=== PATIENT | female | born 1950 | race Caucasian/White ===

== ENCOUNTER 2018-11-30 06:55 | Inpatient (IN) | payer OTHER ==
[~2018-11-30] VITALS: Ht 162.6 cm; Wt 63.0 kg
--- NOTE | 2018-11-30 06:55 | NUR ---
PT [facility]. TAKEN TO BED 6
[2018-11-30 07:00] VITALS: BP 128/80
[2018-11-30] MEDS ORDERED: NACL 0.9% 2,000 ML IV SCH (07:09)
--- NOTE | 2018-11-30 08:00 | NUR ---
ASSUMED PATIENT CARE, NURSING ASSESSMENT COMPLETED. SEEN AND EVALUATED BY PREET ARCE COMPLETED.
[2018-11-30 08:22] LABS: BASOPHILS % (AUTO) 0.2 % (0.0-2.0); EOSINOPHILS % (AUTO) 0.1 % (0.0-4.0); HEMOGLOBIN 11.7 g/dL (12.0-16.0); LYMPHOCYTES # (AUTO) 0.1 K/uL (2.5-16.5); MONOCYTES # (AUTO) 0.3 K/uL (0.8-1.0)
[2018-11-30 08:27] LABS: HEMATOCRIT 36.3 % (36-48); LYMPHOCYTES % (AUTO) 1.7 % (20.5-51.1); MEAN CORPUSCULAR HEMOGLOBIN 27 pg (27-31); MEAN CORPUSCULAR HGB CONC 32 g/dL (33-37); MEAN CORPUSCULAR VOLUME 84.8 fL (80-94); MONOCYTES % (AUTO) 4.1 % (1.7-9.3); NEUTROPHILS # (AUTO) 6.5 K/uL (1.8-7.7); NEUTROPHILS % (AUTO) 93.9 % (42.2-75.2); PLATELET COUNT (AUTO) 127 K/uL (140-450); RED BLOOD CELL COUNT(AUTO) 4.28 MIL/uL (4.20-5.40); RED CELL DISTRIBUTION WIDTH 15.4 % (11.6-13.7)
[2018-11-30 08:39] LABS: ANION GAP 10.4 (8-16); CARBON DIOXIDE 22.7 mmol/L (21-32); CHLORIDE 107 mmol/L (98-107); CREATININE 2.1 mg/dL (0.6-1.3); GFR ARICAN-AMERICAN 30 mL/min (>90); GLUCOSE 95 mg/dL (74-106); POTASSIUM 4.1 mmol/L (3.5-5.1); SODIUM SERUM 136 mmol/L (136-145); UREA NITROGEN, BLOOD 56 mg/dL (7-18)
[2018-11-30 08:43] LABS: ACETONE, SERUM NEGATIVE (NEGATIVE)
[2018-11-30 08:44] LABS: ACETAMINOPHEN 4.1 ug/ml (10-30); ALBUMIN 2.3 g/dL (3.4-5.0); ASPARTATE AMINOTRANSFERASE 21 U/L (15-37); MAGNESIUM 2.1 mg/dL (1.8-2.4); SALICYLATE 3.1 mg/dL (2.8-20.0); TOTAL BILIRUBIN 0.2 mg/dL (0.0-1.0)
[2018-11-30] MEDS ORDERED: ALBUTEROL SULFATE/IPRATROPIU 3 ML SOL IH ONE (08:55)
[2018-11-30] MEDS ORDERED: DEXAMETHASONE 10 MG/ML VIAL IVP ONE (08:55)
[2018-11-30] MEDS ORDERED: AZTREONAM 1,000 MG in DEXTROSE 5% 50 ML IV SCH (08:55)
[2018-11-30 08:58] LABS: PROTHROMBIN TIME 9.2 secs (10.8-13.4)
[2018-11-30 09:32] LABS: APPEARANCE,URINE CLOUDY (CLEAR); BILIRUBIN,URINE NEGATIVE (NEGATIVE); BLOOD, URINE 3+ (NEGATIVE); COLOR,URINE YELLOW (YELLOW); LEUKOCYTE ESTERASE ,URINE 2+ (NEGATIVE); NITRITE, URINE POSITIVE (NEGATIVE); PH,URINE 7.5 (5.0-9.0); UGLUCOSE NEGATIVE (NEGATIVE)
[2018-11-30] MEDS ORDERED: AZTREONAM 1,000 MG VIAL ONE (09:32)
[2018-11-30 09:38] LABS: BARBITURATE, URINE NEG. ng/ml (NEG <=200); BENZODIAZEPINE, URINE NEG. ng/mL (NEG <=200); CANNABINOID, URINE NEG. ng/mL (NEG <=50); COCAINE, URINE NEG. ng/mL (NEG <=300); OPIATE, URINE POS. ng/mL (NEG <=2000); PHENCYCLIDINE SCREEN,URINE NEG. ng/mL (NEG <=25)
[2018-11-30 09:45] LABS: RBC,URINE 50-80 /HPF (0-5); WBC,URINE 80-100 /HPF (0-5)
[2018-11-30 09:46] LABS: TRIPLE PHOSPHATE CRYSTAL,UR 0-10 /HPF (None Seen)
[2018-11-30] MEDS ORDERED: ZOLPIDEM 5 MG TAB PO PRN (10:50)
[2018-11-30] MEDS ORDERED: ONDANSETRON 4 MG/2 ML VIAL IM/IVP PRN (10:50)
[2018-11-30] MEDS ORDERED: DOCUSATE SODIUM 100 MG GELCAP PO PRN (10:50)
[2018-11-30] MEDS ORDERED: ACETAMINOPHEN 325 MG TAB PO PRN (10:50)
--- NOTE | 2018-11-30 11:08 | NUR ---
Dispo and medical decision making, inpatient admission for further management. Transported to [facility] via gurney with ACLS protocol. Patient care report endorsed to [facility] RN, continuity of care endorsed.
--- NOTE | 2018-11-30 11:20 | NUR ---
RECEIVED BEDSIDE REPORT FROM ED RN. PT IS ALOC- AOX1, LETHARGIC. NO S/S DISTRESS. RESPIRATIONS EVEN AND UNLABORED. RHONCHI BILATERAL LUNGS. SATURATING 94% ON RA. HEART RHYTHM REGULAR. ACTIVE BS IN ALL QUADRANTS. ABDOMEN SOFT AND NON-DISTENDED. SKIN INTACT. UNKNOWN IF PATIENT IS AMBULATORY. 2+ BLE PITTING EDEMA. IV SITE PATENT AND ASYMPTOMATIC, WILL START IVF PER MD ORDERS. ALL SAFETY PRECAUTIONS IN PLACE, WILL CONTINUE TO MONITOR.
[2018-11-30 11:30] VITALS: BP 145/81
[2018-11-30] MEDS: NACL 0.9% 1,000 ML IV SCH ×3 (11:38→23:42)
--- NOTE | 2018-11-30 13:12 | NUR ---
PT SLEEPING IN BED, WITH LIGHT SNORING. LETHARGIC BUT AROUSABLE BY VOICE. QUICKLY CLOSES EYES AND GOES BACK TO SLEEP. O2 SATURATION FOUND TO BE 85% ON RA. PT PLACED ON 4L NC AND NOW SATURATING AT 94%.
[2018-11-30 13:27] LABS: CHOL/HDL RATIO 3.3 (1-4.5); FREE T4 (FREE THYROXINE) 1.05 ng/dL (0.76-1.46); PHOSPHORUS 4.4 mg/dL (2.5-4.9); THYROID STIMULATING HORMONE 1.1 uIU/mL (0.34-3.74)
--- NOTE | 2018-11-30 14:46 | NUR ---
UNABLE TO OBTAIN PMHX - NO CAREGIVER/FAMILY MEMBER AVAILABLE. PT IS ALOC, AOX1. UNABLE TO OBTAIN ACCURATE VTE SCORE UPON ADMISSION DUE TO PMHX NOT AVAILABLE.
--- NOTE | 2018-11-30 15:19 | NUR ---
SPOKE WITH DR. VALDEZ REGARDING ADMINISTERING ABX.
[2018-11-30 16:00] VITALS: BP 114/61
--- NOTE | 2018-11-30 16:47 | NUR ---
PT SLEEPING IN BED, VITALS STABLE. ALL SAFETY PRECAUTIONS IN PLACE, WILL CONTINUE TO MONITOR.
--- NOTE | 2018-11-30 17:34 | NUR ---
NOTIFIED DR. ZAMORA THAT THERE IS NO DIET ORDER.
[2018-11-30] MEDS: PIPER/TAZO 2.25GM/D5W PREMIX 50 ML IV SCH ×2 (18:18→23:42)
[2018-11-30] MEDS ORDERED: ALBUTEROL SULFATE/IPRATROPIU 3 ML SOL IH PRN (18:45)
--- NOTE | 2018-11-30 19:24 | NUR ---
ENDORSED POC TO EMPLOYEE BENEFITS SPECIALIST RN. PT IN STABLE CONDITION.
--- NOTE | 2018-11-30 19:30 | NUR ---
RECEIVED FROM AM RN PT. IN BED SLEEPING. LETHARGIC. NONE VERBAL AT THIS TIME. IVF SITE TO RA#20 WITH GOOD BLOOD RETURN INFUSING NS AT 100 ML/H.. DX. OF CHANGE OF LOC,PNA, DEHYDRATION AND UTI. NEEDS WILL BE ANTICIPATED AND WILL BE MET. AFEBRILE.
[2018-11-30 21:52] VITALS: BP 125/67
--- NOTE | 2018-11-30 22:00 | NUR ---
PT. WOKE UP AND SAT ON THE EDGE OF BED. REQUESTING TO GO RESTROOM. PROVIDED WITH BEDSIDE COMMODE INSTEAD RT WEAK WITH DX. OF CHANGE OF LOC. URINATED IN BSC . ASSISTED AND CLEANED BY SHIFT FOREMAN. TOP SHEET CHANGED RT WET WITH URINE. NOTED URINE HAS STRONG ODOR. IVF SITE INTACT AND WITH GOOD BLOOD RETURN.
[2018-12-01 00:31] VITALS: BP 136/73
--- NOTE | 2018-12-01 00:33 | NUR ---
VITAL SIGNS TAKEN. SLEEPING WELL. WOKE UP AND SLEPT BACK IMMEDIATELY AFTER CHECKING VITAL SIGNS. TURNED TO SIDES Q 2H.
--- NOTE | 2018-12-01 02:33 | NUR ---
SLEEPING. TURNED TO SIDES BY CNAS. PT. WAKES UP AND THEN GOES BACK TO SLEEP IMMEDIATELY.TELEMETRY MONITORING.
--- NOTE | 2018-12-01 04:00 | NUR ---
STURNED TO SIDES Q 2H. TOTAL CARE. ABLE TO ANSWER SIMPLE QUESTIONS. NO COMPLAINTS OF PAIN DONE. SLEEPING WELL.
[2018-12-01 04:45] VITALS: BP 157/87
[2018-12-01] MEDS: PIPER/TAZO 2.25GM/D5W PREMIX 50 ML IV SCH ×3 (05:20→18:22)
--- NOTE | 2018-12-01 06:33 | NUR ---
AM PERSONAL HYGIENE RENDERED BY CNAS. TOTAL CARE. TELEMETRY MONITORING. TURNED TO SIDES Q2H. PILLOW SUPPORT TO PRESSURE AREAS.
--- NOTE | 2018-12-01 07:20 | NUR ---
RECEIVED REPORT FROM DANCE ARTIST RN. PT IN BED SLEEPY BUT AWAKE. PT VERBALIZED UNDERSTANDING OF SHIFT CHANGE. IVF SITE TO RA#20 WITH GOOD BLOOD RETURN INFUSING NS AT 100 ML/H. NO SIGNS OF DISTRESS OR PAIN AT THIS TIME. WILL MONITOR PT CLOSELY. BED ALARM ON, BED IN LOW POSITION, CALL LIGHT WITHIN REACH.
[2018-12-01 08:00] VITALS: BP 173/91
--- NOTE | 2018-12-01 08:29 | NUR ---
PATIENT HAS BEEN SCREENED AND CATEGORIZED HIGH NUTRITION RISK. PATIENT WILL BE SEEN WITHIN 1-2 DAYS OF ADMISSION. 12/01/[address]
[2018-12-01] MEDS: LACTOBACILLUS RHAMNOSUS GG 1 EACH CAP PO SCH (09:00)
--- NOTE | 2018-12-01 09:25 | NUR ---
ATTEMPTED TO ADMINISTER MORNING MED TO PT BUT PT REFUSED. MED RETURNED TO [facility].
[2018-12-01] MEDS ORDERED: ENALAPRILAT 2.5 MG/2 ML VIAL IVP SCH (10:10)
[2018-12-01] MEDS ORDERED: cloNIDine 0.1 MG TAB PO SCH (10:13)
--- NOTE | 2018-12-01 10:21 | NUR ---
PT BP IS 181/103. DR NOTIFIED AND MEDICATION PRESCRIBED. WILL MEDICATE.
[2018-12-01 10:55] LABS: BASOPHILS % (AUTO) 0.2 % (0.0-2.0); HEMOGLOBIN 10.4 g/dL (12.0-16.0); LYMPHOCYTES # (AUTO) 0.4 K/uL (2.5-16.5); LYMPHOCYTES % (AUTO) 3.5 % (20.5-51.1); MEAN CORPUSCULAR HEMOGLOBIN 27 pg (27-31); MEAN CORPUSCULAR HGB CONC 32 g/dL (33-37); MEAN CORPUSCULAR VOLUME 85.1 fL (80-94); MONOCYTES # (AUTO) 0.5 K/uL (0.8-1.0); MONOCYTES % (AUTO) 4.4 % (1.7-9.3); NEUTROPHILS # (AUTO) 11.3 K/uL (1.8-7.7); NEUTROPHILS % (AUTO) 91.9 % (42.2-75.2); PLATELET COUNT (AUTO) 96 K/uL (140-450); RED BLOOD CELL COUNT(AUTO) 3.87 MIL/uL (4.20-5.40); RED CELL DISTRIBUTION WIDTH 15.6 % (11.6-13.7); WHITE BLOOD COUNT (AUTO) 12.4 K/uL (4.8-10.8)
[2018-12-01 11:09] LABS: MAGNESIUM 2.2 mg/dL (1.8-2.4); PHOSPHORUS 3.7 mg/dL (2.5-4.9)
[2018-12-01 11:15] LABS: ANION GAP 11.1 (8-16); CARBON DIOXIDE 20.3 mmol/L (21-32); CREATININE 1.8 mg/dL (0.6-1.3); POTASSIUM 3.4 mmol/L (3.5-5.1)
[2018-12-01 12:00] VITALS: BP 152/90
[2018-12-01] MEDS ORDERED: POTASSIUM CHLORIDE 10 MEQ TABER PO SCH (12:46)
--- NOTE | 2018-12-01 13:14 | NUR ---
SWALLOW EVAL RECOMMENDATION FOR PT IS THAT PT BE GIVEN A GROUND DIET. NOTIFIED OF CHANGE.
[2018-12-01] MEDS: cloNIDine 0.1 MG TAB PO SCH ×2 (13:21→20:31)
--- NOTE | 2018-12-01 13:40 | NUR ---
S.T. BEDSIDE SWALLOW EVAL COMPLETED See report for details. Pt presents with mild oral difficulty due to lack of lower dentition (absent lower denture), and therefore management of solids is difficult. No overt s/s aspiration were observed, however, across all textures while pt was observed self-feeding from her lunch tray. Recommend: 1) Downgrade diet texture to mechanical soft ground, thin liquids ok. 2) Tray set up to promote self feeding, and sit pt upright at 90 degrees. Pt was found at 45 degree angle eating her lunch. No further tx indicated at this time. DC to [facility]. time [id number]
--- NOTE | 2018-12-01 14:19 | NUR ---
12/01/18 RD INITIAL ASSESSMENT COMPLETED PLEASE REFER TO NUTRITION ASSESSMENT UNDER CARE ACTIVITY FOR ESTIMATED NUTRITIONAL NEEDS. 1. CONTINUE MECHANICAL SOFT RENAL HIGH FIBER DIET TOLERATED 2. RECOMMEND NEPRO BID 3. CONSIDER TUBE FEEDING IF PO CONTINUE TO BE LESS THAN 50% IN 2-[address] TO FOLLOW-UP 2-3 DAYS, HIGH RISK CADENCE CLINTON, RD
[2018-12-01 16:00] VITALS: BP 179/106
[2018-12-01] MEDS ORDERED: NACL 0.9% 250 ML IV ONE (16:45)
[2018-12-01] MEDS ORDERED: METOPROLOL 25 MG TAB PO SCH ×2 (16:45→21:00)
[2018-12-01] MEDS ORDERED: NACL 0.9% 250 ML IV SCH (16:50)
[2018-12-01] MEDS: ALBUTEROL SULFATE/IPRATROPIU 3 ML SOL IH SCH ×2 (17:05→21:10)
--- NOTE | 2018-12-01 17:11 | NUR ---
SATURATION 90% ON ROOM AIR POST HHN THERAPY PLACED ON SUPPLEMENTAL OXYGEN AT 2 LPM VIA KILEY KAHN/EVA AWARE
--- NOTE | 2018-12-01 17:55 | NUR ---
PT WAS PUT ON 2L O2 VIA N/C FOR LOW O2 SAT. PT IS REFUSING N/C AT THIS TIME.
--- NOTE | 2018-12-01 19:41 | NUR ---
ENDORSED PT TO BOOM BOSS FOR CONTINUITY OF CARE. PT IN STABLE CONDITION AT THIS TIME.
--- NOTE | 2018-12-01 19:42 | NUR ---
RECEIVED REPORT FROM DAY SHIFT NURSE CRISS-EVA AT BEDSIDE. PT RESTING IN BED, AOX2, ON ROOM AIR REFUSING TO USE NASAL CANNULA, WITH RIGHT UPPER ARM #20G RUNNING NS 0.9% @50ML/HR. GENERALIZED WEAKNESS, BEDSIDE COMMODE WITH INSTANCES OF INCONTINENCE. UPPER DENTURES NEEDING GROUND FOODS, MEDICATIONS CRUSHED AND IN APPLE SAUCE. CONTACT ISOLATION FOR MRSA NARES POSITIVE. DISCUSSED PLAN OF CARE AND PT VERBALIZED UNDERSTANDING. NO S/S OF RESPIRATORY DISTRESS OR DISCOMFORT NOTED AT THIS TIME. BED IN LOWEST POSITION, BED BREAKS ON, BOTH SIDE RAILS UP AND FALL PRECAUTIONS IN PLACE. BEDSIDE TABLE AND CALL LIGHT ARE WITHIN REACH. WILL CONTINUE TO MONITOR.
[2018-12-01 20:00] VITALS: BP 187/87
--- NOTE | 2018-12-01 20:00 | NUR ---
NOTED BLOOD PRESSURE HIGH- WILL MEDICATE WITH SCHEDULED BP MEDICATION. NO S/S OF RESPIRATORY DISTRESS OR DISCOMFORT NOTED AT THIS TIME. WILL CONTINUE TO MONITOR.
--- NOTE | 2018-12-01 20:00 | NUR ---
VITAL SIGNS TAKEN AND TOLERATED WELL. NO S/S OF RESPIRATORY DISTRESS OR DISCOMFORT NOTED AT THIS TIME. WILL CONTINUE TO MONITOR.
--- NOTE | 2018-12-01 20:31 | NUR ---
SCHEDULED MEDICATIONS GIVEN AND TOLERATED WELL. NO S/S OF RESPIRATORY DISTRESS OR DISCOMFORT NOTED AT THIS TIME. WILL CONTINUE TO MONITOR.
[2018-12-01] MEDS: NACL 0.9% 1,000 ML IV SCH (21:40)
--- NOTE | 2018-12-01 22:01 | NUR ---
BP REASSESSED -DECREASED 133/88, HR 69. NO S/S OF RESPIRATORY DISTRESS OR DISCOMFORT NOTED AT THIS TIME. WILL CONTINUE TO MONITOR.
[2018-12-02] VITALS: BP 189/102
--- NOTE | 2018-12-02 | NUR ---
VITAL SIGNS TAKEN AND TOLERATED WELL. HIGH BP NOTED- WILL REASSESS. DR. SANTOS AWARE. SCHEDULED MEDICATION GIVEN AND TOLERATED WELL. NO S/S OF RESPIRATORY DISTRESS OR DISCOMFORT NOTED AT THIS TIME. WILL CONTINUE TO MONITOR.
--- NOTE | 2018-12-02 00:35 | NUR ---
REASSESSED BP 207/[address] SANTOS AWARE AND WILL BE PLACING NEW ORDER. WILL CONTINUE TO MONITOR.
--- NOTE | 2018-12-02 01:40 | NUR ---
CALLED DR. SANTOS REGARDING ORDERS FOR HIGH BLOOD PRESSURE. STATED SHE WOULD BE PLACING ORDERS FOR APRESOLINE.
[2018-12-02] MEDS ORDERED: hydrALAZINE 20 MG/ML VIAL IVP ONE (01:50)
--- NOTE | 2018-12-02 02:06 | NUR ---
BLOOD PRESSURE 205/94, HR 75. DR. SANTOS ORDERED APRESOLINE 10MG/0.5ML- GIVEN AND TOLERATED WELL. WILL REASSESS @0306. NO S/S OF RESPIRATORY DISTRESS OR DISCOMFORT NOTED AT THIS TIME. WILL CONTINUE TO MONITOR.
--- NOTE | 2018-12-02 03:06 | NUR ---
REASSESS BP 222/121, HR 93. DR. SANTOS AWARE- WILL PLACE ADDITIONAL ORDERS. WILL CONTINUE TO MONITOR.
--- NOTE | 2018-12-02 03:30 | NUR ---
PT CONTINUES TO C/O SOB. INSTRUCT PT TO USE NASAL CANNULA HOWEVER PT TAKES OFF OXYGEN 2L/NC. O2SAT 88%. INSTRUCT PT TO USE MASK 5L AND 02SAT INCREASE TO 95%. CALL RT MAICO TO ASSESS PT. PT REFUSING BREATHING TX. NON-COMPLIANT. WILL CONTINUE TO MONITOR.
[2018-12-02 04:00] VITALS: BP 227/122
[2018-12-02] MEDS: cloNIDine 0.1 MG TAB PO SCH ×4 (04:01→22:15)
--- NOTE | 2018-12-02 04:01 | NUR ---
VITAL SIGNS TAKEN AND BP CONTINUES TO BE INCREASED. DR. SANTOS PRESENT AND INSTRUCTED TO GIVE SCHEDULED MEDICATION- DOSAGE HAS INCREASED. MEDICATION GIVEN CRUSHED AND IN APPLE SAUCE. PT TOLERATED WELL. DR. SANTOS INSTRUCTED TO GIVE PT ATIVAN FOR ANXIETY. WILL CONTINUE TO MONITOR.
[2018-12-02] MEDS: LORazepam 2 MG/ML VIAL IM/IVP PRN ×2 (04:09→20:13)
--- NOTE | 2018-12-02 04:09 | NUR ---
ATIVAN GIVEN FOR ANXIETY. PT TOLERATED WELL. NO S/S OF RESPIRATORY DISTRESS OR DISCOMFORT NOTED AT THIS TIME. WILL CONTINUE TO MONITOR.
[2018-12-02] MEDS: PIPER/TAZO 2.25GM/D5W PREMIX 50 ML IV SCH ×4 (05:28→18:10)
--- NOTE | 2018-12-02 05:31 | NUR ---
REASSESS BP HAS DECREASED TO 148/71, HR 73- DR. SANTOS AWARE. SCHEDULED MEDICATION ZOSYN GIVEN AND TOLERATED WELL. NO S/S OF RESPIRATORY DISTRESS OR DISCOMFORT NOTED AT THIS TIME. WILL CONTINUE TO MONITOR.
--- NOTE | 2018-12-02 07:18 | NUR ---
ENDORSED PT CARE TO DAY SHIFT NURSE ALISHA FOR CONTINUITY OF CARE.
--- NOTE | 2018-12-02 07:19 | NUR ---
RECEIVED REPORT FROM STRETCHER HELPER NURSE FOR CONTINUITY OF CARE. PT IN STABLE CONDITION, RESPIRATIONS EVEN AND UNLABORED. IV INTACT AND PATENT. SAFETY MEASURES IN PLACE. CALL LIGHT AT BEDSIDE. BED IN LOW POSITION. BED ALARM SET. WILL CONTINUE TO MONITOR.
[2018-12-02] MEDS: ALBUTEROL SULFATE/IPRATROPIU 3 ML SOL IH SCH ×3 (07:31→19:09)
[2018-12-02 07:50] LABS: BASOPHILS % (AUTO) 0.1 % (0.0-2.0); HEMATOCRIT 30.8 % (36-48); LYMPHOCYTES # (AUTO) 0.4 K/uL (2.5-16.5); LYMPHOCYTES % (AUTO) 3.5 % (20.5-51.1); MEAN CORPUSCULAR HEMOGLOBIN 27 pg (27-31); MEAN CORPUSCULAR HGB CONC 32 g/dL (33-37); MEAN CORPUSCULAR VOLUME 84.4 fL (80-94); MONOCYTES # (AUTO) 0.5 K/uL (0.8-1.0); MONOCYTES % (AUTO) 4.3 % (1.7-9.3); NEUTROPHILS # (AUTO) 11.1 K/uL (1.8-7.7); NEUTROPHILS % (AUTO) 92.1 % (42.2-75.2); PLATELET COUNT (AUTO) 79 K/uL (140-450); RED BLOOD CELL COUNT(AUTO) 3.66 MIL/uL (4.20-5.40); RED CELL DISTRIBUTION WIDTH 16.2 % (11.6-13.7); WHITE BLOOD COUNT (AUTO) 12.1 K/uL (4.8-10.8)
[2018-12-02 08:00] VITALS: BP 195/106
--- NOTE | 2018-12-02 08:44 | NUR ---
REPOSITIONED AND CHANGED AFTER URINATION. PT TOLERATED WELL. WILL CONTINUE TO MONITOR.
--- NOTE | 2018-12-02 08:58 | NUR ---
OFF UNIT FOR ABD/PELVIC CT W/O CONTRAST. PT IN STABLE CONDITION.
[2018-12-02 09:04] LABS: ANION GAP 17.6 (8-16); CARBON DIOXIDE 18.3 mmol/L (21-32); CREATININE 1.7 mg/dL (0.6-1.3)
[2018-12-02 09:06] LABS: MAGNESIUM 1.8 mg/dL (1.8-2.4); PHOSPHORUS 2.6 mg/dL (2.5-4.9)
[2018-12-02 09:18] LABS: POTASSIUM 2.9 mmol/L (3.5-5.1)
[2018-12-02] MEDS ORDERED: hydrALAZINE 25 MG TAB PO PRN ×2 (09:45→11:00)
[2018-12-02] MEDS ORDERED: POTASSIUM CHLORIDE 40 MEQ, LIDOCAINE MPF 1% - 5 mL VIAL 25 MG in NACL 0.9% 250 ML IV SCH (10:00)
--- NOTE | 2018-12-02 11:00 | NUR ---
PT LYING IN BED IN STABLE CONDITION SLEEPING AT THIS TIME. WILL CONTINUE TO MONITOR.
[2018-12-02] MEDS: LACTOBACILLUS RHAMNOSUS GG 1 EACH CAP PO SCH (11:34)
[2018-12-02] MEDS: NACL 0.9% 1,000 ML IV SCH (11:35)
[2018-12-02 12:00] VITALS: BP 190/99
--- NOTE | 2018-12-02 14:36 | NUR ---
GAVE COFFEE PER PT REQUEST. PT IN STABLE CONDITION. BED IN LOW POSITION. BED ALARM ON. WILL CONTINUE TO MONITOR.
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
[2018-12-02 15:11] LABS: ANION GAP 13.6 (8-16); CARBON DIOXIDE 21.7 mmol/L (21-32); CREATININE 1.7 mg/dL (0.6-1.3); POTASSIUM 3.3 mmol/L (3.5-5.1)
--- NOTE | 2018-12-02 15:42 | NUR ---
REPOSITIONED AND CLEANED AFTER URINATION. PT TOLERATED WELL. WILL CONTINUE TO MONITOR.
[2018-12-02 16:00] VITALS: BP 173/92
[2018-12-02] MEDS ORDERED: POTASSIUM CHLORIDE 10 MEQ TABER PO SCH (16:30)
--- NOTE | 2018-12-02 17:15 | NUR ---
PT LYING IN BED SLEEPING, IN STABLE CONDITION. WILL CONTINUE TO MONITOR.
[2018-12-02] MEDS ORDERED: NIFEdipine 60 MG TABER PO SCH (18:00)
--- NOTE | 2018-12-02 19:09 | NUR ---
PATIENT STATED SHE DOES NOT WANT HHN TREATMENT OR SAO2 AND JUST WANTS TO GO HOME. EVA MEDEL IS AWARE
--- NOTE | 2018-12-02 19:22 | NUR ---
GAVE REPORT TO AIR CARRIER MAINTENANCE INSPECTOR NURSE. PT IN STABLE CONDITION.
--- NOTE | 2018-12-02 19:30 | NUR ---
RECEIVED BEDSIDE REPORT FROM RN GIANFRANCO, PATIENT YELLING ASKING TO GO HOME, REFUSED ASSESSMENT AND V/S, STATING "I WANT TO GO HOME NOW, NO DON'T TOUCH ME, LET ME GO HOME!" CHARGE NURSE AWARE, INSTRUCTED PATIENT IS CONFUSED AND CANT LEAVE. BED ALARM ON, WILL TRY TO TAKE BP AT DIFFERENT TIME.
--- NOTE | 2018-12-02 19:45 | NUR ---
PATIENT ASKED FOR WATER, GAVE WATER, THREW CUP ACROSS ROOM STATING "I WANT TO GO HOME GOD DAMMIT! YOU ALL ARE GOING TO [facility] FOR KEEPING ME HERE AGAINST MY WILL!". CHARGE NURSE HEATHER AWARE. WILL CALL SECURITY. BED ALARM ON.
[2018-12-02 20:00] VITALS: BP 168/80
--- NOTE | 2018-12-02 20:00 | NUR ---
PATIENT REFUSED ASSESSMENT AND V/S CHECK STATED "GET THE FUCK OUT OF HERE YOU BITCH BEFORE I SLAP YOU". NOTIFIED CHARGE NURSE AND CALLED SECURITY.
--- NOTE | 2018-12-02 20:13 | NUR ---
PATIENT AGITATED AND COMBATIVE TOWARDS STAFF. GAVE ATIVAN IM.
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
[2018-12-02] MEDS: hydrALAZINE 25 MG TAB PO SCH ×2 (21:00→22:15)
[2018-12-02] MEDS ORDERED: HALOPERIDOL IM 5 MG/ML VIAL IM SCH (22:00)
--- NOTE | 2018-12-02 22:05 | NUR ---
PATIENT COMBATIVE AND AGITATED, CHARGE NURSE HEATHER ASKED RESIDENT TO ORDER HALDOL. CHARGE NURSE HEATHER GAVE HALDOL.
--- NOTE | 2018-12-02 22:15 | NUR ---
V/S TAKEN BP 168/80 HR 90. EXPLAINED OF NEED FOR DUE MEDICATIONS TO CONTROL HIGH BLOOD PRESSURE. PATIENT STATED "ILL TAKE WHATEVER LONG YOU SHUT THE FUCK UP". DUE MEDICATIONS GIVEN, WILL REASSESS WHEN APPROPRIATE.
--- NOTE | 2018-12-02 22:18 | NUR ---
PATIENT ALLOWED ASSESSMENT
--- NOTE | 2018-12-02 23:36 | NUR ---
PATIENT REFUSED V/S CHECK STATED "DONT TOUCH ME BITCH". WILL TRY TO CHECK LATER.
[2018-12-03] MEDS: PIPER/TAZO 2.25GM/D5W PREMIX 50 ML IV SCH ×4 (00:20→18:16)
--- NOTE | 2018-12-03 00:45 | NUR ---
FABIEN DONE INFUSING.
--- NOTE | 2018-12-03 03:23 | NUR ---
PATIENT RESTING IN BED, NO SIGNS OF DISTRESS, BP 155/88 HR 75. WILL GIVE DUE MEDICATIONS.
[2018-12-03 03:46] VITALS: BP 155/80
[2018-12-03] MEDS: LORazepam 2 MG/ML VIAL IM/IVP PRN (04:08)
--- NOTE | 2018-12-03 04:09 | NUR ---
PATIENT YELLED "DONT TOUCH ME!" PUSHED MY HAND AWAY WHEN TRYING TO FIX IV. GAVE ATIVAN FOR ANXIETY. EXPLAINED NEED OF DUE MEDICATIONS, PATIENT SAID "GIVE ME THAT SHIT AND GET THE FUCK OUT OF HERE BEFORE I HIT YOU." WILL CALL SECURITY IF NEEDED.
[2018-12-03] MEDS: cloNIDine 0.1 MG TAB PO SCH ×3 (04:16→20:40)
[2018-12-03] MEDS: hydrALAZINE 25 MG TAB PO SCH ×3 (04:16→21:00)
--- NOTE | 2018-12-03 06:05 | NUR ---
BP 152/90 HR 84
[2018-12-03 06:34] LABS: BASOPHILS % (AUTO) 0.2 % (0.0-2.0); EOSINOPHILS # (AUTO) 0.1 K/uL (0-0.4); EOSINOPHILS % (AUTO) 0.5 % (0.0-4.0); HEMATOCRIT 31.5 % (36-48); HEMOGLOBIN 10.1 g/dL (12.0-16.0); LYMPHOCYTES # (AUTO) 0.5 K/uL (2.5-16.5); LYMPHOCYTES % (AUTO) 4.4 % (20.5-51.1); MEAN CORPUSCULAR HEMOGLOBIN 27 pg (27-31); MEAN CORPUSCULAR HGB CONC 32 g/dL (33-37); MEAN CORPUSCULAR VOLUME 84.2 fL (80-94); MONOCYTES # (AUTO) 0.4 K/uL (0.8-1.0); NEUTROPHILS # (AUTO) 10.2 K/uL (1.8-7.7); NEUTROPHILS % (AUTO) 90.9 % (42.2-75.2); PLATELET COUNT (AUTO) 67 K/uL (140-450); RED BLOOD CELL COUNT(AUTO) 3.75 MIL/uL (4.20-5.40); RED CELL DISTRIBUTION WIDTH 15.7 % (11.6-13.7); WHITE BLOOD COUNT (AUTO) 11.3 K/uL (4.8-10.8)
--- NOTE | 2018-12-03 06:36 | NUR ---
PATIENT ATTEMPTED TO GET OUT OF BED, ASSISTED BACK INTO BED, BED ALARM ON.
[2018-12-03 07:00] LABS: ANION GAP 15.6 (8-16); CARBON DIOXIDE 20.8 mmol/L (21-32); CREATININE 1.6 mg/dL (0.6-1.3); POTASSIUM 3.4 mmol/L (3.5-5.1)
[2018-12-03] MEDS: ALBUTEROL SULFATE/IPRATROPIU 3 ML SOL IH SCH ×2 (07:00→14:44)
--- NOTE | 2018-12-03 07:00 | NUR ---
PT WOULD NOT ALLOW RT TO ASSESS PUSHING MY HAND AWAY NO SIGNS OF DISTRESS NOTED
[2018-12-03 07:16] LABS: MAGNESIUM 1.9 mg/dL (1.8-2.4); PHOSPHORUS 2.6 mg/dL (2.5-4.9)
--- NOTE | 2018-12-03 07:30 | NUR ---
RECEIVED PT IN BED ASLEEP, AROUSABLE, ORIENTED X2, TO NAME AND . PT IS CALM. NO SOB NOTED. NO SIGNS PAIN AT THIS TIME. IV TO RT UPPER ARM PATENT AND INTACT. CHEST, DIMINISHED AIR ENTRY TO THE BASES. ABDOMEN SOFT, BOWEL SOUNDS PRESENT. RECTAL PROLAPSE 3/4 VISIBLE, BEE RED IN COLOR, NO ACTIVE BLEEDING NOTED. INSTRUCTED PT TO CALL FOR ASSISTANCE, CALL LIGHT WITHIN REACH, 3 SIDE RAILS RAISED UP, BED ALARM ON. PT VERBALIZED PARTIAL UNDERSTANDING. WILL CONTINUE TO MONITOR PT'S BEHAVIOUR.
--- NOTE | 2018-12-03 07:36 | NUR ---
ENDORSED PATIENT TO DAY SHIFT NURSE, PATIENT STABLE.
[2018-12-03 08:00] VITALS: BP 142/80
[2018-12-03] MEDS ORDERED: POTASSIUM CHLORIDE 10 MEQ TABER PO SCH (08:30)
[2018-12-03] MEDS ORDERED: POTASSIUM CHLORIDE 20% 40 MEQ/15 ML UDC PO SCH ×2 (09:00→09:52)
--- NOTE | 2018-12-03 09:10 | NUR ---
PHYSICAL THERAPY ON GOING AT THE BEDSIDE.
--- NOTE | 2018-12-03 09:22 | NUR ---
Faxed to Graznya from [facility] PT Dr bre's order for SNF placement and progress notes.
[2018-12-03] MEDS: NIFEdipine 60 MG TABER PO SCH (10:11)
[2018-12-03] MEDS: LACTOBACILLUS RHAMNOSUS GG 1 EACH CAP PO SCH (10:11)
[2018-12-03] MEDS: MORPHINE SULFATE 4 MG/ML SYR IVP PRN ×2 (10:18→18:28)
[2018-12-03 12:00] VITALS: BP 113/64
--- NOTE | 2018-12-03 13:00 | NUR ---
PT CONSUMED 50% OF LUNCH SERVED, FOOD TOLERATED WELL.
--- NOTE | 2018-12-03 13:21 | NUR ---
Typing Office Worker Note: Late entry for 12/02/18: I called and spoke with Serfain from [facility] (patient's pcp). I asked Serafin if patient has an Advance Directive in their chart, she replied "no". According to Serafin patient's last visit was on July 2018 and emergency contact is her sister Gabriella Carbajal .
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
[2018-12-03] MEDS: HYDROcodone/APAP 5/325 MG 1 TAB TAB PO PRN ×2 (13:41→21:27)
--- NOTE | 2018-12-03 14:01 | NUR ---
Clinicals faxed to [facility] for SNF placement for PT and IV ABX.
--- NOTE | 2018-12-03 14:04 | NUR ---
Clinicals faxed to [facility] for SNF placement for PT and IV ABX.
--- NOTE | 2018-12-03 14:34 | NUR ---
PT REFUSED ECHO TO BE DONE AT THIS TIME. NOTIFIED EVA BO AND DR. ODELL
--- NOTE | 2018-12-03 15:16 | NUR ---
Taylor from [facility] called and stated" they are not accepting the pt due behavioral issues.
--- NOTE | 2018-12-03 15:40 | NUR ---
Supervisor Estimator And Drafter Note: I faxed inquiries to both [facility] and [facility]. Per Nolberto from [facility] , their arts administrator will come tomorrow and evaluate patient. She is aware patient might require fpc placement. Per Tasneem from [facility] , they don't have a contract with [facility], unable to accept patient.
[2018-12-03 15:54] VITALS: BP 129/80
--- NOTE | 2018-12-03 16:04 | NUR ---
Internal Audit Director Note: I faxed inquiry to [facility] and [facility].
--- NOTE | 2018-12-03 16:45 | NUR ---
PT RESTING ON HER SIDE. NO SOB NOTED. NO C/O PAIN AT THIS TIME.
[2018-12-03] MEDS: NACL 0.9% 1,000 ML IV SCH (17:40)
--- NOTE | 2018-12-03 18:30 | NUR ---
PT REFUSED DINNER, STATED SHE WILL EAT LATER. PT C/O PAIN ON HER RECTUM, ENCOURAGED PT TO REPOSITION ON HER SIDE. MEDICATED PT WITH PAIN MEDS. WILL CONTINUE TO MONITOR.
--- NOTE | 2018-12-03 19:05 | NUR ---
PT RESTING, NO SOB NOTED. NO COMPLAINTS MADE. WILL ENDORSE TO NEXT SHIFT NURSE FOR CONTINUITY OF CARE.
--- NOTE | 2018-12-03 19:50 | NUR ---
RECEIVED PATIENT FROM DAY SHIFT NURSE FOR CONTINUITY OF CARE. PATIENT ASLEEP, AROUSABLE BY NAME, RESPIRATION EVEN UNLABORED ON O2 2L VIA NC. DENIES SHORTNESS OF BREATH OR DISCOMFORT. SKIN IS WARM AND DRY. IV PATENT AND INTACT. RECTAL PROLAPSE NOTED. NO ACTIVE BLEEDING SEEN. PLAN OF CARE WAS DISCUSSED. ALL SAFETY MEASURE IN PLACE. BED IS AT LOW POSITION. BED ALARM ON. CALL LIGHT WITHIN REACH. WILL CONTINUE TO MONITOR.
[2018-12-03 20:00] VITALS: BP 127/60
--- NOTE | 2018-12-03 20:30 | NUR ---
PATIENT IS AWAKE, ALERT, RESPIRATION EVEN UNLABORED ON 2L O2 VIA NC. INITIAL ASSESSMENT DONE. VITALS STABLE. MEDS WERE GIVEN PER ORDER. CALL LIGHT WITHIN REACH. WILL CONTINUE TO MONITOR.
[2018-12-03] MEDS: QUEtiapine FUMARATE 25 MG TAB PO SCH (20:40)
[2018-12-03] MEDS ORDERED: CHLORHEXADINE GLUC 2% CLOTH TP SCH (21:00)
[2018-12-03] MEDS ORDERED: MUPIROCIN CA NASAL 2% 1GM TUBE NS SCH (21:00)
--- NOTE | 2018-12-03 21:00 | NUR ---
PATIENT WAS YELLING, HITTING THE BED, ATTEMPTED TO GET OUT OF BED. ASSISTED BACK INTO BED. BED ALARM ON. WILL CONTINUE TO MONITOR.
--- NOTE | 2018-12-03 21:20 | NUR ---
PATIENT WAS AWAKE, RESPIRATION EVEN UNLABORED ON 2L OF O2 VIA NC. WAS COMPLAINING OF RECTUM PAIN RATED 8/10. PRN PAIN MEDS ADMINISTERED PER ORDER. CALL LIGHT WITHIN REACH. WILL CONTINUE TO MONITOR.
--- NOTE | 2018-12-03 22:00 | NUR ---
PATIENT IS SLEEPING COMFORTABLY RESPIRATION EVEN UNLABORED ON 2L OF O2 VIA NC. NO DISTRESS NOTED AT THIS TIME. WILL CONTINUE TO MONITOR.
--- NOTE | 2018-12-03 23:30 | NUR ---
HELPED PATIENT AMBULATE TO THE BATHROOM. TOLERATED WELL. RECTUM PROLAPSE VISIBLE. NO BLEEDING NOTED. WILL CONTINUE TO MONITOR.
[2018-12-04] VITALS: BP 113/53
[2018-12-04] MEDS: PIPER/TAZO 2.25GM/D5W PREMIX 50 ML IV SCH ×3 (00:08→12:00)
--- NOTE | 2018-12-04 00:30 | NUR ---
PATIENT ASLEEP RESPIRATION EVEN UNLABORED ON 2L OF O2 VIA NC. NO DISTRESS NOTED AT THIS TIME. WILL CONTINUE TO MONITOR.
[2018-12-04] MEDS: hydrALAZINE 25 MG TAB PO SCH ×2 (05:00→12:43)
[2018-12-04] MEDS: cloNIDine 0.1 MG TAB PO SCH ×2 (05:00→12:40)
--- NOTE | 2018-12-04 05:11 | NUR ---
PATIENT REFUSED VITAL SIGNS AND MEDS. PATIENT YELLED "DON'T TOUCH ME. I DONT WANT IT." EDUCATED THE RISK AND BENEFITS OF IT X3 STILL REFUSED. WILL CONTINUE TO MONITOR.
--- NOTE | 2018-12-04 06:00 | NUR ---
CHANGED PATIENT AND GAVE PERICARE. PROLAPSE RECTUM VISIBLE NO BLEEDING NOTED. WILL CONTINUE TO MONITOR.
[2018-12-04] MEDS ORDERED: HYDROcodone/APAP 5/325 MG 1 TAB TAB PO PRN (06:10)
[2018-12-04] MEDS ORDERED: HYDROcodone/APAP 7.5/325 MG 1 TAB PO SCH (06:10)
--- NOTE | 2018-12-04 07:10 | NUR ---
RECEIVED BEDSIDE REPORT FROM EVA MACDONALD. PT SLEEPING BUT EASILY AROUSABLE. NO SIGNS OF DISTRESS NOTED. NO REDNESS, SWELLING, OR INFLAMMATION NOTED ON IV SITE. CALL GARNICA WITHIN REACH. BED IN LOWEST POSITION. SAFETY MEASURES IN PLACE. PLAN OF CARE REVIEWED.
[2018-12-04] MEDS: ALBUTEROL SULFATE/IPRATROPIU 3 ML SOL IH SCH ×2 (07:26→15:07)
--- NOTE | 2018-12-04 07:27 | NUR ---
ENDORSED PATIENT TO DAY SHIFT NURSE FOR CONTINUITY OF CARE. PATIENT IS STABLE AT THIS TIME.
[2018-12-04 08:00] VITALS: BP 154/72
--- NOTE | 2018-12-04 09:20 | NUR ---
Spoke with Grazyna yesterday from [facility] , we can ask placement with [facility] and [facility].
[2018-12-04] MEDS: LACTOBACILLUS RHAMNOSUS GG 1 EACH CAP PO SCH (09:36)
[2018-12-04] MEDS: QUEtiapine FUMARATE 25 MG TAB PO SCH (09:36)
[2018-12-04] MEDS: NIFEdipine 60 MG TABER PO SCH (09:36)
--- NOTE | 2018-12-04 09:40 | NUR ---
ADMINISTERED SCHEDULED MEDICATIONS. PT TOLERATED WELL. NO OTHER NEEDS AT THIS TIME.
--- NOTE | 2018-12-04 10:04 | NUR ---
Spoke with Gabriella from [facility] informing her that [facility] will accept the pt. Gabriella will call me back for the auth for [place] and transportation.
--- NOTE | 2018-12-04 10:05 | NUR ---
Horticulture Worker Note: I called and spoke with Paloma from [facility] . Per Paloma, they can accept patient today, room 18C, accepting physician is . Paloma stated she needs snf authorization from [facility], case investigator Laisha will contact [facility] case investigator to obtain snf authorization. Addendum: 12/04/18 at 1015 by Marisol Zarco SS Paloma is aware patient might need manager intermediate snf placement.
--- NOTE | 2018-12-04 10:15 | NUR ---
PT PULLED OUT IV, PT REFUSED TO HAVE ANOTHER IV RE-INSERTED. MD GUALLPA.
--- NOTE | 2018-12-04 10:26 | NUR ---
Spoke with Gabriella from [facility] AUTH# [id number] for [facility] and transportation with [facility] .
[2018-12-04] MEDS ORDERED: LORazepam 1 MG TAB PO SCH (10:30)
[2018-12-04] MEDS: LORazepam 2 MG/ML VIAL IM/IVP PRN (10:40)
--- NOTE | 2018-12-04 10:42 | NUR ---
PT AGITATED RESTLESS, ATIVAN 1MG IM GIVEN ORDERED, VITALS STABLE.
[2018-12-04] MEDS ORDERED: LORazepam 2 MG/ML VIAL IM SCH (11:00)
--- NOTE | 2018-12-04 11:02 | NUR ---
Spoke with Paloma from [facility] . Per Paloma, pt will be going to room 100B and accepting MD is Dr. Simons.
--- NOTE | 2018-12-04 11:04 | NUR ---
Transportation arranged with [facility] AUTH #[id number]. Pt will be picked up from [facility] room 113 A and transported to [facility] at 1500.
--- NOTE | 2018-12-04 11:07 | NUR ---
Barbara Man RN pt will be picked up at 1500 by [facility] and transportated to [facility] to room 100 B.
--- NOTE | 2018-12-04 11:09 | NUR ---
Called [facility] and spoke with Jessica informing her the pt will be picked up by [facility] at [address] [facility].
[2018-12-04] MEDS ORDERED: ACET-9525 PO (11:38)
[2018-12-04] MEDS ORDERED: BACTNA NS (11:38)
[2018-12-04] MEDS ORDERED: CHLO118S2 TP (11:38)
[2018-12-04] MEDS ORDERED: HYDR-4420 PO (11:38)
[2018-12-04] MEDS ORDERED: CLON0.1T42 PO (11:38)
[2018-12-04] MEDS ORDERED: ACET-9529 PO (11:38)
[2018-12-04] MEDS ORDERED: ADA60 PO (11:38)
[2018-12-04] MEDS ORDERED: ZOS2.25PM IV (11:40)
[2018-12-04] MEDS ORDERED: ATI.5 PO (11:40)
[2018-12-04] MEDS ORDERED: QUET50TA PO (11:40)
[2018-12-04] MEDS ORDERED: LACT1.4C PO (11:40)
--- NOTE | 2018-12-04 11:46 | NUR ---
Called Paloma from 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 Pt is still going to room 100 B.
[2018-12-04 12:00] VITALS: BP 124/77
--- NOTE | 2018-12-04 12:00 | NUR ---
VITAL SIGNS TAKEN, STABLE. PT CALM, SLEEPING, BUT EASILY AROUSABLE.
[2018-12-04 14:10] VITALS: BP 122/83
--- NOTE | 2018-12-04 14:18 | NUR ---
GAVE REPORT TO JOANN FROM [facility] FOR PT TRANSFER.
--- NOTE | 2018-12-04 14:58 | NUR ---
FAXED MED-RECON TO JOANN AT [facility].
--- NOTE | 2018-12-04 15:07 | NUR ---
HHN THERAPY AND RESPIRATORY DRUG NOT GIVEN PATIENT BEING DISCHARGED NO SOB NOTED AT THI TIME Addendum: 12/04/18 at 1508 by Mitul Schmidt RT "THI" = THIS
--- NOTE | 2018-12-04 15:15 | NUR ---
D/C INSTRUCTIONS AND PRESCRIPTION GIVEN TO PT AND [facility]. ALL BELONGINGS SENT HOME WITH PT. NO IV ACCESS, PT REFUSED TO HAVE IV REINSERTED AFTER PT PULLED OUT IV, AND JOANN FROM [facility] AWARE. PT STABLE, AWAKE, AND ALERT AND ORIENTED X3. PT PICKED UP BY [facility] TO BE TAKEN TO [facility].
--- NOTE | 2018-12-05 13:49 | NUR ---
Automatic Nailing Machine Operator Note: Late entry for 12/04/18: I informed patient's sister Gabriella Carbajal patient was transfer to [facility] and provided her with phone number and address of [facility]. She stated she is planning to contact patient at [facility].
== END 2018-12-04 15:15 | DRG 917 ==
LOC: MED 06:55 → MTU 10:52 → EEVIPCON 10:52 → MTU 12-01 19:15
PROVIDERS: ADMIT General Practice; ATTEND General Practice
DX: T43.621A Poisoning by amphetamines, accidental (unintentional), initial encounter (principal); A41.9 Sepsis, unspecified organism; J69.0 Pneumonitis due to inhalation of food and vomit; G92 Toxic encephalopathy; N17.0 Acute kidney failure with tubular necrosis; E43 Unspecified severe protein-calorie malnutrition; J44.1 Chronic obstructive pulmonary disease with (acute) exacerbation; I16.1 Hypertensive emergency; N39.0 Urinary tract infection, site not specified; E87.0 Hyperosmolality and hypernatremia; R64 Cachexia; Z68.24 Body mass index [BMI] 24.0-24.9, adult; K62.3 Rectal prolapse; E86.0 Dehydration; M47.814 Spondylosis without myelopathy or radiculopathy, thoracic region; E87.6 Hypokalemia; E87.8 Other disorders of electrolyte and fluid balance, not elsewhere classified; I71.4 Abdominal aortic aneurysm, without rupture; B96.20 Unspecified Escherichia coli [E. coli] as the cause of diseases classified elsewhere; R31.9 Hematuria, unspecified; T40.601A Poisoning by unspecified narcotics, accidental (unintentional), initial encounter; N20.0 Calculus of kidney; Z87.81 Personal history of (healed) traumatic fracture; Y92.89 Other specified places as the place of occurrence of the external cause; Z68.23 Body mass index [BMI] 23.0-23.9, adult
CPT/HCPCS: 36415; 36600; 70450; 71045; 73060; 76770; 80048; 80053; 80305; 81001; 82009; 82140; 82150; 82550; 82553; 82803; 82948; 83036; 83605; 83690; 83735; 83874; 83880; 84100; 84439; 84443; 84484; 84550; 85025; 85610; 87040; 87081; 87086; 87186; 87804; 92610; 93005; 94640; 96365; 96375; 97110; 97116; 97530; 99285; G0480; G0482; J0360; J1100; J1630; J2001; J2060; J2270; J2543; J3480; J3490; J7030; J7620; Q0092

== ENCOUNTER 2019-06-15 18:31 | Emergency (ER) | payer OTHER ==
[~2019-06-15] VITALS: Ht 162.6 cm; Wt 59.4 kg
[~2019-06-15 18:31] MED LIST: ACET-9525 PO; ACET-9529 PO; ADA60 PO; ATI.5 PO; BACTNA NS; CHLO118S2 TP; CLON0.1T42 PO; HYDR-4420 PO; LACT1.4C PO; QUET50TA PO; ZOS2.25PM IV
[2019-06-15 18:44] VITALS: BP 185/117
--- NOTE | 2019-06-15 18:54 | NUR ---
PT BACK TO LOBBY WHILE SITTING ON FWW
--- NOTE | 2019-06-15 18:56 | NUR ---
PT SITTIN ON FWW ASSISTED BY FRIEND TO BED 2
--- NOTE | 2019-06-15 19:15 | NUR ---
PT CAME TO ER FOR MEDICATION REFILL. PT CURRENTLY TAKING NORCO 10-325MG TAB PO Q 6 HOURS PRN AND LYRICA 300MG CAPSULE PO BID. PT PAIN LEVEL 10/10 BILATERAL FOOT PAIN AND BACK OF THE LEGS. ALLERGIES: PENICILLIN. MED HX: BILATERAL NERVE DAMAGE IN BOTH FEET AND HTN. SAFETY MEASURES IN PLACE. WAITING FOR ERMD TO EVALUATE PT.
[2019-06-15 19:49] VITALS: BP 185/117
--- NOTE | 2019-06-15 19:49 | NUR ---
Patient discharged with v/s stable. Written and verbal after care instructions given and explained. Patient alert, oriented and verbalized understanding of instructions. Ambulatory with walker and steady gait. All questions addressed prior to discharge. ID band removed. Patient advised to follow up with PMD. Rx of LYRICA was given. Patient educated on indication of medication including possible reaction and side effects. Opportunity to ask questions provided and answered.
== END 2019-06-15 19:48 | disposition home or self-care (01) ==
LOC: MED 18:31
DX: I10 Essential (primary) hypertension (principal); Z76.0 Encounter for issue of repeat prescription; Z88.0 Allergy status to penicillin; Z79.899 Other long term (current) drug therapy
CPT/HCPCS: 99283